=== PATIENT | female | born 1960 | race Caucasian/White ===

== ENCOUNTER 2018-11-30 19:21 | Emergency (ER) | payer OTHER ==
[~2018-11-30] VITALS: Ht 157.5 cm; Wt 75.7 kg
[2018-11-30 19:35] VITALS: Ht 157.5 cm; Wt 75.7 kg
[2018-11-30 20:17] LABS: BASOPHIL % 0.2 % (0-2); PLATELET COUNT 209 x10^3mcL (130-400)
[2018-11-30 20:20] LABS: CALCIUM 8.7 mg/dL (8.5-10.1); CARBON DIOXIDE 27.7 mmol/L (21-32); CHLORIDE SERUM 105 mmol/L (98-107); CREATININE SERUM 0.8 mg/dL (0.6-1.0); GFR1 > 60 mL/min; GLUCOSE SERUM 96 mg/dL (74-106); POTASSIUM SERUM 3.7 mmol/L (3.5-5.1); SODIUM SERUM 141 mmol/L (136-145)
[2018-11-30 20:25] LABS: ALKALINE PHOSPHATASE 76 U/L (46-116); ALT/SGPT 79 U/L (14-59); AST/SGOT 35 U/L (15-37); BILIRUBIN TOTAL 0.5 mg/dL (0.20-1.00); TOTAL PROTEIN, SERUM 7.4 g/dL (6.4-8.2)
[2018-11-30 20:26] LABS: ALBUMIN 3.3 g/dL (3.4-5.0)
[2018-12-01 01:10] VITALS: BP 131/77
== END 2018-12-01 01:10 | disposition home or self-care (01) ==
LOC: ED 19:21
DX: B34.9 Viral infection, unspecified (principal); R06.00 Dyspnea, unspecified; I10 Essential (primary) hypertension; G43.909 Migraine, unspecified, not intractable, without status migrainosus; Z88.1 Allergy status to other antibiotic agents; Z88.5 Allergy status to narcotic agent
CPT/HCPCS: 36415; 85378; 87804; J7030; Q9967